=== PATIENT | male | born 1990 | race Caucasian/White ===

== ENCOUNTER 2023-07-27 12:55 | Emergency (ER) | payer SELFPAY ==
[~2023-07-27] VITALS: Ht 170.2 cm; Wt 81.6 kg
[2023-07-27 13:20] VITALS: BP 147/84; PULSE 79; RESP 18; TEMP 97; O2SAT 98
[2023-07-27] MEDS ORDERED: TRANEXAMIC ACID 1,000 MG/10 ML VIAL ONE ×2 (13:34→15:34)
[2023-07-27] MEDS ORDERED: TRANEXAMIC ACID 1,000 MG/10 ML VIAL MC ONE (13:35)
[2023-07-27] MEDS ORDERED: LIDOCAINE MPF 2% 100 MG/5 ML VIAL INJ ONE (14:45)
[2023-07-27] MEDS ORDERED: LIDOCAINE 2% 1000 MG/50 ML VIAL INJ ONE (15:25)
[2023-07-27] MEDS ORDERED: LIDOCAINE MPF 1% 10 MG/ML VIAL INJ ONE (15:30)
[2023-07-27] MEDS ORDERED: CHLO473S62 PO (16:12)
[2023-07-27 16:19] VITALS: BP 120/79; PULSE 70; RESP 18; TEMP 97; O2SAT 98
== END 2023-07-27 16:19 | disposition home or self-care (01) ==
LOC: MED 12:55
DX: S01.512A Laceration without foreign body of oral cavity, initial encounter (principal); R03.0 Elevated blood-pressure reading, without diagnosis of hypertension; Z79.899 Other long term (current) drug therapy; Z91.013 Allergy to seafood; X58.XXXA Exposure to other specified factors, initial encounter; Y93.89 Activity, other specified; Y92.89 Other specified places as the place of occurrence of the external cause; Y99.8 Other external cause status
CPT/HCPCS: 99282; J2001; J3490